=== PATIENT | female | born 1995 | race Caucasian/White ===

== ENCOUNTER 2021-02-16 05:33 | Emergency (ER) | payer OTHER ==
[~2021-02-16] VITALS: Ht 154.9 cm; Wt 45.4 kg
[~2021-02-16 05:33] MED LIST: PRENA1 TRUE CO1 EACH PO
== END 2021-02-16 10:54 ==
LOC: ER 05:33 → EMR PED 05:33 → ER 06:09
DX: R07.0 Pain in throat (principal)